=== PATIENT | male | born 1955 | race Caucasian/White ===

== ENCOUNTER 2022-02-05 07:07 | Day surgery (SDC) | payer OTHER ==
[~2022-02-05 07:07] MED LIST: Acetaminophen 325 MG Tab PO SCH; Lactated Ringers 1,000 ML IV SCH; Lactated Ringers 1,000 ML ONE; Lidocaine 1%/Sod Bicarbonate in NS 8.4% 1 ML Syringe IDERM PRN; Midazolam 1 MG/ML 2 ML SDV ONE; Pregabalin 25 MG Cap PO SCH; Propofol 200 MG/20 ML SDV ONE; Sodium Chloride 0.9% 10 ML Syringe FLUSH PRN; Sodium Chloride 0.9% 10 ML Syringe FLUSH SCH; ceFAZolin 1 GM Vial ONE; fentaNYL 100 MCG/2 ML SDV ONE; oxyCODONE ER 10 MG TAB.ER PO SCH
[2022-02-05] MEDS ORDERED: ceFAZolin 1 GM Vial ONE (07:46)
[2022-02-05] MEDS ORDERED: Ropivacaine 0.5% 5 MG/ML 30 ML SDV ONE (07:52)
[2022-02-05] MEDS ORDERED: EPINEPHrine 1 MG/ML SDV ONE (07:52)
[2022-02-05] MEDS: Vancomycin 1 GM SDV ONE ×2 (09:23→10:51)
[2022-02-05] MEDS: Morphine 8 MG, EPINEPHrine 0.3 MG, Cefuroxime 750 MG, Ketorolac 30 MG, Sodium Chloride ... PRN ×10 (09:23→10:40)
[2022-02-05] MEDS ORDERED: Propofol 200 MG/20 ML SDV ONE ×2 (09:44→09:46)
[2022-02-05] MEDS ORDERED: oxyCODONE 5 MG Tab PO ONE ×3 (10:10→13:30)
[2022-02-05] MEDS ORDERED: Ondansetron 4 MG/2 ML SDV IVPUSH PRN (10:25)
[2022-02-05] MEDS ORDERED: HYDROmorphone 0.5 MG/0.5 ML Syringe IVPUSH PRN (10:25)
[2022-02-05] MEDS: fentaNYL 100 MCG/2 ML SDV IVPUSH PRN ×2 (11:20→11:36)
== END 2022-02-05 15:38 | disposition home or self-care (01) ==
LOC: JD.SDS 07:07
PROVIDERS: ATTEND Orthopaedic Surgery
DX: T84.84XA Pain due to internal orthopedic prosthetic devices, implants and grafts, initial encounter (principal); M23.51 Chronic instability of knee, right knee; F41.1 Generalized anxiety disorder; F33.1 Major depressive disorder, recurrent, moderate; Z87.891 Personal history of nicotine dependence; Z79.899 Other long term (current) drug therapy; Y83.8 Other surgical procedures as the cause of abnormal reaction of the patient, or of later complication, without mention of misadventure at the time of the procedure
CPT/HCPCS: 0055T; 27447; 73560; 97110; 97116; 97161; A9270; C1713; C1776; J0171; J0690; J0697; J1170; J1885; J2250; J2270; J2704; J2795; J3010; J3370; J7120; 01402; 64450; 76942